=== PATIENT | female | born 1970 | race Asian ===

== ENCOUNTER → 2017-04-04 | Outpatient (CLI) | payer BC ==
[2017-04-04 08:50] LABS: BASOPHILS % 0.3 % (0.0-2.0); EOSINOPHILS # 0.2 10^3/ul (0.0-0.5); EOSINOPHILS % 3.1 % (0.0-7.0); HEMATOCRIT 37.1 % (37.0-47.0); HEMOGLOBIN 12.2 g/dl (12.0-16.0); LYMPHOCYTES # 1.5 10^3/ul (0.8-2.9); LYMPHOCYTES % 25.2 % (15.0-51.0); MEAN CORPUSCULAR HEMOGLOBIN 29.5 pg (29.0-33.0); MEAN CORPUSCULAR HGB CONC 32.9 g/dl (32.0-37.0); MEAN CORPUSCULAR VOLUME 89.6 fl (82.0-101.0); MEAN PLATELET VOLUME 9.6 fl (7.4-10.4); MONOCYTE # 0.6 10^3/ul (0.3-0.9); MONOCYTES % 10.3 % (0.0-11.0); NEUTROPHILS % 60.9 % (39.0-77.0); PLATELET COUNT 250 10^3/UL (140-415); RED BLOOD COUNT 4.14 10^6/ul (4.20-5.40); RED CELL DISTRIBUTION WIDTH 11.9 % (11.5-14.5); WHITE BLOOD COUNT 5.8 10^3/ul (4.8-10.8)
[2017-04-04 08:57] LABS: ADD UMIC NO; UR ASCORBIC ACID NEGATIVE (NEGATIVE); UR BILIRUBIN (Dip) NEGATIVE (NEGATIVE); UR BLOOD (Dip) NEGATIVE (NEGATIVE); UR CLARITY CLEAR (CLEAR); UR COLOR YELLOW (YELLOW); UR GLUCOSE (Dip) NEGATIVE (NEGATIVE); UR KETONES (Dip) NEGATIVE (NEGATIVE); UR LEUKOCYTE ESTERASE (Dip) NEGATIVE Leu/ul (NEGATIVE); UR NITRITE (Dip) NEGATIVE (NEGATIVE); UR SPECIFIC GRAVITY (Dip) 1.015 (1.003-1.030); UR TOTAL PROTEIN (Dip) NEGATIVE (NEGATIVE); UR UROBILINOGEN (Dip) NEGATIVE (NEGATIVE)
[2017-04-04 09:41] LABS: ALBUMIN 4.1 g/dl (3.3-4.9); ALBUMIN/GLOBULIN RATIO 1.32; BILIRUBIN,INDIRECT 0.6 mg/dl (0-1.1); BILIRUBIN,TOTAL 0.6 mg/dl (0.2-1.3); CALCIUM 9.5 mg/dl (8.4-10.2); CHOL/HDL RATIO 2.1 RATIO; CREATININE 0.68 mg/dl (0.44-1.00); POTASSIUM 4.2 mmol/L (3.5-5.1); TOTAL PROTEIN 7.2 g/dl (6.1-8.1)
[2017-04-04 13:29] LABS: THYROID STIMULATING HORMONE 1.39 MIU/L (0.465-4.680)
== END | disposition home or self-care (01) ==
LOC: LAB 08:25
PROVIDERS: ATTEND Internal Medicine
DX: E03.9 Hypothyroidism, unspecified (principal); E78.5 Hyperlipidemia, unspecified; R73.03 Prediabetes
CPT/HCPCS: 80053; 80061; 81003; 83036; 84436; 84443; 85025

== ENCOUNTER 2018-05-14 11:23 | Emergency (ER) | END 2018-05-14 12:51 | disposition home or self-care (01) ==

== ENCOUNTER 2018-09-22 10:02 | Emergency (ER) | payer BC ==
[~2018-09-22] VITALS: Ht 157.5 cm; Wt 52.2 kg
[~2018-09-22 10:02] MED LIST: IBUP-1561 PO
[2018-09-22 10:05] VITALS: Ht 157.5 cm; Wt 52.2 kg
--- NOTE | 2018-09-22 12:18 | ERD ---
ER Documentation Chief Complaint Chief Complaint pt bib self with c/o right arm weakness x 1 wk HPI 48-year-old female who presents to the emergency room complaining of paresthesias and possible weakness to her right arm. Symptoms present for approximately 5-7 days. The heaviness and paresthesia has been worse over the past 48 hours. Patient denies any clumsiness. She is right-hand dominant. No fevers chills chest pain or shortness of breath. No headaches. No slurred speech. No other motor deficits. She denies any exertional symptoms, no pleuritic pain. ROS All systems reviewed and are negative except as per history of present illness. Medications Home Meds Active Scripts Ibuprofen* (Motrin*) 400 Mg Tab, 400 MG PO Q8, #20 TAB Prov:MARY KAY GIPSON MD 05/14/18 Allergies Allergies: Coded Allergies: No Known Drug Allergies (Verified Allergy, Mild, 06/10/16) PMhx/Soc History of Surgery: Yes (c section x 2,D AND C X2,TUBAL LIGATION) Anesthesia Reaction: No Hx Neurological Disorder: No Hx Respiratory Disorders: No Hx Cardiac Disorders: No Hx Psychiatric Problems: No Hx Miscellaneous Medical Probl: No Hx Alcohol Use: No Hx Substance Use: No Hx Tobacco Use: No FmHx Family History: No diabetes Physical Exam Vitals Vital Signs Date Temp Pulse Resp B/P (MAP) Pulse Ox O2 O2 Flow FiO2 Time Delivery Rate 09/22/18 98.3 62 20 113/52 98 Room Air 2.0 12:30 (72) 09/22/18 98.3 68 20 127/64 98 Room Air 2.0 11:30 (85) 09/22/18 Nasal 11:08 Cannula 09/22/18 Nasal 2 10:54 Cannula 09/22/18 98.1 142 18 167/83 100 10:05 (111) Physical Exam General: Well developed, well nourished, no acute distress Head: Normocephalic, atraumatic. Eyes: Pupils equally reactive, EOM intact ENT: Moist mucous membranes Neck: Supple, no lymphadenopathy Respiratory: Lungs clear bilaterally, no distress Cardiovascular: RRR, no murmurs, rubs, or gallops Abdominal: Soft, non-tender, non-distended, no peritoneal signs : Deferred MSK: No edema, no unilateral swelling, 5/5 strength Neurologic: Alert and oriented, moving all extremities, normal speech, no focal weakness, no cerebellar signs, no pronator drift, 5 out of 5 strength of the right upper extremity. No significant sensory deficits noted. NIHSS of 0 Skin: No rash Psych: Normal mood Result Diagram: 09/22/18 1050 09/22/18 1050 Results 24 hrs Laboratory Tests Test 09/22/18 10:50 09/22/18 10:58 09/22/18 11:10 White Blood Count 4.8 10^3/ul Red Blood Count 4.42 10^6/ul Hemoglobin 12.4 g/dl Hematocrit 38.7 % Mean Corpuscular Volume 87.6 fl Mean Corpuscular Hemoglobin 28.1 pg Mean Corpuscular Hemoglobin Concent 32.0 g/dl Red Cell Distribution Width 12.1 % Platelet Count 290 10^3/UL Mean Platelet Volume 9.7 fl Immature Granulocytes % 0.200 % Neutrophils % 57.0 % Lymphocytes % 33.2 % Monocytes % 7.7 % Eosinophils % 1.3 % Basophils % 0.6 % Nucleated Red Blood Cells % 0.0 /100WBC Immature Granulocytes # 0.010 10^3/ul Neutrophils # 2.7 10^3/ul Lymphocytes # 1.6 10^3/ul Monocytes # 0.4 10^3/ul Eosinophils # 0.1 10^3/ul Basophils # 0.0 10^3/ul Nucleated Red Blood Cells # 0.0 10^3/ul Prothrombin Time 12.8 Sec Prothrombin Time Ratio 1.0 INR International Normalized Ratio 0.95 Activated Partial Thromboplast Time 29.0 Sec Sodium Level 141 mmol/L Potassium Level 3.9 mmol/L Chloride Level 107 mmol/L Carbon Dioxide Level 25 mmol/L Anion Gap 9 Blood Urea Nitrogen 13 mg/dl Creatinine 0.69 mg/dl Est Glomerular Filtrat Rate mL/min > 60 mL/min Glucose Level 144 mg/dl Hemoglobin A1c 5.5 % Calcium Level 9.4 mg/dl Troponin I < 0.012 ng/ml Triglycerides Level 67 mg/dl Cholesterol Level 152 mg/dl LDL Cholesterol, Calculated 84 mg/dl HDL Cholesterol 55 mg/dl Cholesterol/HDL Ratio 2.7 RATIO Bedside Glucose 125 mg/dL POC Beta HCG, Qualitative NEGATIVE Procedures/MDM EKG, MONITORS, & DIAGNOSTIC IMAGING: EKG: I reviewed and interpreted a 12-lead EKG. Rhythm: Normal sinus rhythm ST Changes: No contiguous ST segment elevations T waves: No contiguous T wave inversions Impression: No evidence of acute cardiac ischemia Chest x-ray: I reviewed and interpreted a 1 view of the chest Mediastinum: No enlargement Cardiac silhouette: No cardiomegaly Airspace: Clear lung roman bilaterally without evidence of pneumothorax Bones: No evidence of fracture MRI, MRA head and neck PENDING LAB INTERPRETATION: I reviewed the laboratory testing and it shows no evidence of acute process MEDICAL DECISION MAKING: The patient's presentation is very nonspecific. The patient does describe subjective paresthesias to the right upper extremity. It does not appear to be consistent with cervical radiculopathy. Patient is 48 years old and seems unlikely to be related to acute coronary syndrome with no other risk factors for acute coronary syndrome or cardiac etiology. EKG and troponin would be reasonable given duration of symptoms no indication for hospitalization. Stroke seems unlikely but given the patient's unilateral symptoms it would be reasonable for further evaluation. Given the patient's lower risk profile do not believe that inpatient hospitalization is necessary. The patient would benefit from MRI imaging of the head and neck. If no acute process is noted, the patient can be safely discharged with outpatient follow-up for paresthesia of the right upper extremity. ER COURSE: * Initial laboratory testing and diagnostic imaging is negative. If MRI imaging is negative the patient can be safely discharged home with a diagnosis of idiopathic paresthesia with primary care follow-up. * Patient endorsed oncoming provider to follow-up on MRI imaging CONSULTATION: None DISPOSITION PLAN: Pending MRI. Departure Diagnosis: Primary Impression: Paresthesia of right upper extremity Condition: Stable DEANDRE SCHUSTER MD Sep 22, 2018 12:18
[2018-09-22] MEDS ORDERED: ERGO500013 PO (16:04)
[2018-09-22] MEDS ORDERED: MEDR10TA9 PO (16:04)
[2018-09-22 16:27] VITALS: BP 127/45; PULSE 58; RESP 20
== END 2018-09-22 16:39 | disposition home or self-care (01) ==
LOC: E/R 10:02 → EEVIPCON 10:02 → E/R 16:39
DX: R20.2 Paresthesia of skin (principal); R40.2142 Coma scale, eyes open, spontaneous, at arrival to emergency department; R40.2252 Coma scale, best verbal response, oriented, at arrival to emergency department; R40.2362 Coma scale, best motor response, obeys commands, at arrival to emergency department; R53.1 Weakness; Z86.73 Personal history of transient ischemic attack (TIA), and cerebral infarction without residual deficits
CPT/HCPCS: 36415; 70544; 70549; 70551; 71045; 80048; 80061; 81025; 82962; 83036; 84484; 85025; 85610; 85730; 93005

== ENCOUNTER 2018-10-11 18:02 | Emergency (ER) | payer BC ==
[~2018-10-11] VITALS: Ht 157.5 cm; Wt 51.8 kg
[~2018-10-11 18:02] MED LIST changes: +ERGO500013 PO; -IBUP-1561 PO; +MEDR10TA9 PO
[2018-10-11 18:05] VITALS: Ht 157.5 cm; Wt 51.8 kg
[2018-10-11] MEDS ORDERED: SOD CHLORIDE 0.9% 1,000 ML IV STA (18:22)
--- NOTE | 2018-10-11 18:27 | ERD ---
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 The patient reports a history of uterine biopsy on 10/03/18, since the procedure, the patient has been experiencing intermittent episodes of vaginal bleeding, associated with lower back pain. The patient took Provera, prescribed by her care attendant. Currently, she denies chest pain, no shortness of breath, no dizziness, no fever or chills. ROS All systems reviewed and are negative except as per history of present illness. Medications Home Meds Active Scripts Hydrocodone/Acetaminophen (Bellflower 5-325 Tablet) 1 Each Tablet, 1 TAB PO BID PRN for PAIN, #7 TAB Prov:MARY KAY GIPSON MD 10/11/18 Reported Medications Ergocalciferol (Vitamin D2) (VITAMIN D2) 50,000 Unit Capsule, 33750 UNIT PO WE EKLY, CAP 09/22/18 Medroxyprogesterone Acetate* (Medroxyprogesterone Acetate*) 10 Mg Tablet, 10 MG PO DAILY, TAB 09/22/18 Allergies Allergies: Coded Allergies: No Known Drug Allergies (Verified Allergy, Mild, 10/11/18) PMhx/Soc History of Surgery: Yes (c section x 2,D AND C X2,TUBAL LIGATION) Anesthesia Reaction: No Hx Neurological Disorder: No Hx Respiratory Disorders: No Hx Cardiac Disorders: No Hx Psychiatric Problems: No Hx Miscellaneous Medical Probl: No Hx Alcohol Use: No Hx Substance Use: No Hx Tobacco Use: No Physical Exam Vitals Vital Signs Date Temp Pulse Resp B/P (MAP) Pulse Ox O2 O2 Flow FiO2 Time Delivery Rate 10/11/18 88 20 133/83 100 Room Air 18:22 (100) 10/11/18 98.4 135 20 151/68 98 18:05 (95) Physical Exam Const: No acute distress Head: Atraumatic Eyes: Normal Conjunctiva ENT: Normal External Ears, Nose and Mouth. Neck: Full range of motion. No meningismus. Resp: Clear to auscultation bilaterally Cardio: Regular rate and rhythm, no murmurs Abd: Soft, non tender, non distended. Normal bowel sounds : Deferred at this time. Skin: No petechiae or rashes Back: No midline or flank tenderness Ext: No cyanosis, or edema Neur: Awake and alert Psych: Normal Mood and Affect Result Diagram: 10/11/18184310/11/184 Results 24 hrs Laboratory Tests Test 10/11/18 18:44 White Blood Count 6.9 10^3/ul Red Blood Count 3.90 10^6/ul Hemoglobin 11.3 g/dl Hematocrit 35.3 % Mean Corpuscular Volume 90.5 fl Mean Corpuscular Hemoglobin 29.0 pg Mean Corpuscular Hemoglobin Concent 32.0 g/dl Red Cell Distribution Width 12.7 % Platelet Count 284 10^3/UL Mean Platelet Volume 9.5 fl Immature Granulocytes % 0.300 % Neutrophils % 56.5 % Lymphocytes % 30.2 % Monocytes % 10.6 % Eosinophils % 2.0 % Basophils % 0.4 % Nucleated Red Blood Cells % 0.0 /100WBC Immature Granulocytes # 0.020 10^3/ul Neutrophils # 3.9 10^3/ul Lymphocytes # 2.1 10^3/ul Monocytes # 0.7 10^3/ul Eosinophils # 0.1 10^3/ul Basophils # 0.0 10^3/ul Nucleated Red Blood Cells # 0.0 10^3/ul Sodium Level 140 mmol/L Potassium Level 4.3 mmol/L Chloride Level 102 mmol/L Carbon Dioxide Level 27 mmol/L Anion Gap 11 Blood Urea Nitrogen 10 mg/dl Creatinine 0.61 mg/dl Est Glomerular Filtrat Rate mL/min > 60 mL/min Glucose Level 100 mg/dl Calcium Level 9.5 mg/dl Serum HCG, Qualitative NEGATIVE Current Medications Medications Dose Sig/Giles Start Time Status Last (Trade) Ordered Route PRN Stop Time Admin Dose Reason Admin Sodium 1,000 ml @ Q1H STAT 10/11/18 DC 10/11/18 Chloride 1,000 mls/hr IV 18:22 19:07 10/11/18 19:21 1 tab ONCE ONCE 10/11/18 DC 10/11/18 Acetaminophen PO 18:30 19:07 / 10/11/18 18:57 Hydrocodone Bitart (Bellflower (5/325)) Lorazepam 0.5 mg ONCE ONCE 10/11/18 DC 10/11/18 (Ativan) PO 19:00 19:06 10/11/18 19:01 Patient: WAYNE DÍAZ DOB: 1970 Age: 48 Sex: F MR #: [id number] DOS: 10/11/18 1822 Ordering MD: MARY KAY GIPSON MD Location: [facility] Room/Bed: PROCEDURE: US Pelvis. CLINICAL INDICATION: pelvic pain TECHNIQUE: Multiple sonographic images of the pelvis were obtained utilizing transabdominal and endovaginal technique. The images were reviewed on a PACS workstation. COMPARISON: 05/14/18 FINDINGS: The uterus is normal in size with a heterogeneous appearance of the myometrium. The uterus measures 7.9 x 6.3 x 6.2 cm. There is a 1 cm hypoechoic mass within the uterus, suspicious for fibroid.. The endometrial stripe is homogeneous in appearance and has the thickness of 8 mm. The ovaries are normal in size and echogenicity. Normal Doppler flow is identified in both ovaries. The right ovary measures 4.8 x 2.7 x 3.2 cm. There is a 4 cm simple cyst in the right ovary. The left ovary measures 3.1 x 1.7 x 2.6 cm. No free fluid is present within the pelvis. RPTAT: AA IMPRESSION: Small fibroid within the uterus. 4 cm simple cyst in the right ovary. Procedures/MDM Vital signs stable, Physical exam unremarkable, abdomen soft, nontender. Patient hemodynamically stable. Differential diagnosis include but not limited to: , ovarian cyst, fibroids, endometriosis, malignancy, dysfunctional bleeding, hematologic condition. Low suspicion for PID, no signs of hypovolemic shock. Physical examination and clinical presentation consistent most likely with dysfunctional uterine bleeding. During the ED course the patient remained stable, no new complaints. Results and clinical impression discussed with patient who agrees with management. The patient is stable to be treated outpatient and will be discharged home with a Rx for Bellflower, some side effects of prescribed medications (headache, rash, nausea, vomiting, diarrhea, drowsiness, habituation, bleeding, hypertension, interactions with other medications) were reviewed. The patient was instructed to follow up with the primary care provider in the next 48h. If symptoms persist, worsen or new symptoms develop, then patient should return to the ED immediately. Instructions explained and given directly by me to the patient with acknowledgment and demonstrated understanding. Disclaimer: Inadvertent spelling and grammatical errors are likely due to EHR/dictation software use and do not reflect on the overall quality of patient care. Also, please note that the electronic time recorded on this note does not necessarily reflect the actual time of the patient encounter. Departure Diagnosis: Primary Impression: Dysfunctional uterine bleeding Condition: Stable Additional Instructions: Thank you very much for allowing us to participate in your care. Your health and safety is our top priority at [facility]. Call your primary care doctor TOMORROW for an appointment during the next 2-4 days and bring all the information and medications prescribed. Have prescriptions filled and follow precisely the directions on the label. If the symptoms get worse and your provider is unavailable, return to the Emergency Department immediately. MARY KAY GIPSON MD Oct 11, 2018 18:27
[2018-10-11] MEDS ORDERED: HYDROCODONE/APAP (5/325) TAB PO ONE (18:30)
[2018-10-11] MEDS ORDERED: LORAZEPAM 0.5 MG TAB PO ONE (19:00)
[2018-10-11] MEDS ORDERED: HYDR-4011 PO (20:16)
[2018-10-11 21:09] VITALS: BP 111/51; PULSE 65; RESP 15
== END 2018-10-11 21:09 | disposition home or self-care (01) ==
LOC: E/R 18:02 → EEVIPCON 18:02 → FTE 21:09
DX: N93.8 Other specified abnormal uterine and vaginal bleeding (principal); R10.2 Pelvic and perineal pain
CPT/HCPCS: 36415; 76830; 76856; 80048; 84703; 85025; 99285; J7030